=== PATIENT | female | born 1975 | race Caucasian/White ===

== ENCOUNTER 2018-05-02 23:18 | Emergency (ER) | payer MEDICAID ==
[~2018-05-02] VITALS: Ht 157.5 cm; Wt 111.3 kg
[2018-05-02 23:31] VITALS: BP 159/84; PULSE 86; RESP 20; Ht 157.5 cm; Wt 111.3 kg
[2018-05-03] MEDS ORDERED: D-ME473S2 PO (02:08)
[2018-05-03] MEDS ORDERED: AZIT250T PO (02:08)
[2018-05-03] MEDS ORDERED: ALBU8.5H8 INH (02:08)
--- NOTE | 2018-05-03 02:32 | ERD ---
ER Documentation Chief Complaint Chief Complaint BIB SELF W/ C/O CHOW, COUGH AND PAIN TO UPPER CHEST W/ COUGH X3 WEEKS HPI This is a 42-year-old female presents ED with complaints of cough times 3 weeks. Patient admits to sputum production, bilateral ear pain, mild headache and chest discomfort with prolonged coughing spells. Denies shortness breath, wheezing, runny nose, sore throat, neck pain, fever, chills. Patient states that son is recently been sick. No known drug allergies. ROS All systems reviewed and are negative except as per history of present illness. Medications Home Meds Active Scripts Albuterol Sulfate* (Proair HFA*) 8.5 Gm Hfa.aer.ad, 2 PUFF INH Q4, #1 INHALER Prov:JENNIFER LESTER PA-C 05/03/18 Azithromycin* (Zithromax*) 250 Mg Tablet, 250 MG PO .ZPACK DIRECTED, #6 TAB TAKE 500 MG (2 TABS) THE FIRST DAY THEN 250 MG (1 TAB) DAYS 2-5 Prov:JENNIFER LESTER PA-C 05/03/18 Dextromethorphan Hb-Promethazine Hcl* (Promethazine DM* Syrup) 473 Ml Syrup, 5 ML PO Q6 PRN for COUGH for 5 Days, ML Prov:JENNIFER LESTER PA-C 05/03/18 Allergies Allergies: Coded Allergies: No Known Allergy (Verified , 07/21/06) PMhx/Soc Medical and Surgical Hx: pt denies Medical Hx, pt denies Surgical Hx Hx Alcohol Use: No Hx Substance Use: No Hx Tobacco Use: No Smoking Status: Never smoker FmHx Family History: No diabetes Physical Exam Vitals Vital Signs Date Temp Pulse Resp B/P (MAP) Pulse Ox O2 O2 Flow FiO2 Time Delivery Rate 05/02/18 98.6 86 20 159/84 98 23:31 (109) Physical Exam Physical Exam Vitals signs: Reviewed by me. General: Well developed, well nourished, in no acute distress. Patient is awake and alert. Head: Normocephalic, atraumatic. Eyes: Normal conjunctiva, Pupils PERRLA, EOM intact grossly ENT: Pharynx is clear, Moist mucous membranes, external ears, nose and mouth normal Neck: Supple, no masses, lymphadenopathy or JVD Respiratory: Clear to auscultation bilaterally with no wheezing, rhonchi, rales, no distress Cardiovascular: RRR, no murmurs, rubs, or gallops Neurologic: Alert and oriented, moving all extremities, normal speech, no focal weakness, no cerebellar signs. Normal mentation Skin: warm and dry, No rash Psych: Normal mood Procedures/MDM ER COURSE: The patient was stable throughout ED course. I kept the patient and/or family informed of laboratory and diagnostic imaging results throughout the emergency room course. The patient was promptly evaluated and a treatment plan was devised based on H&P and other data. This plan was discussed with the patient who agreed and had no further questions or concerns prior to discharge. MEDICAL DECISION MAKIN-year-old female presents ED with complaints of cough times 3 weeks. Symptoms are most likely consistent with acute bronchitis. Low suspicion for pneumonia, as lung sounds are clear at this time. Oxygen saturation is normal and patient does not have any respiratory distress. Advanced imaging is not indicated at this time. Low suspicion for other cardiopulmonary emergency such as pulmonary embolism, pneumothorax, tension pneumothorax, pleural effusion, pneumothorax, CHF, aortic aneurysm or other cardiopulmonary emergencies. No evidence of sepsis. Patient's vitals are stable he can be managed with close outpatient follow-up. Advised patient to follow-up with primary care in the next 48 hours. Return to ED with any worsening symptoms DISPOSITION PLAN: We discussed follow up with the patient's primary care doctor within 24 to 48 hours. Patient counseled regarding my diagnostic impression and care plan. Prior to discharge all questions answered. Pt agrees with treatment plan and understands strict return precautions. Precautionary instructions provided including instructions to return to the ER if not improving or for any worsening or changing symptoms or concerns. ExitCare instructions provided. Prior to discharge, patients vital signs have been reviewed SPECIALIST FOLLOW UP RECOMMENDED: None Patient has been advised to follow up with primary care in 1-2 days. Disclaimer: Inadvertent spelling and grammatical errors are likely due to EHR/dictation software use and do not reflect on the overall quality of patient care. Also, please note that the electronic time recorded on this note does not necessarily reflect the actual time of the patient encounter. Blood Pressure Assessment: Patient's blood pressure was elevated (>120/80) but appears stable without evidence of hypertension emergency or urgency. The patient was counseled about the risks of hypertension and urged to pursue outp atient monitoring and therapy within a week with their primary care physician. Departure Diagnosis: Primary Impression: Acute bronchitis Bronchitis organism: unspecified organism Qualified Codes: J20.9 - Acute bronchitis, unspecified Condition: Stable Patient Instructions: Bronchitis, Antiobiotic Treatment (Adult) [facility]errals[facility] Usted se chow hecho un examen mdico de control que le indica que no est en ama condicin que requiera tratamiento urgente en el Departamento de Emergencia. Un estudio ms profundo y el tratamiento de hernandez condicin pueden esperar sin ningn riesgo hasta que usted sea atendida/o en el consultorio de hernandez mdico o ama clnica. Es responsabilidad suya arreglar ama moe para el seguimiento del marquis. MANEJO DE CONDICIONES NO URGENTES EN EL FUTURO 1) Si usted tiene un mdico de atencin primaria: Usted debera llamar a hernandez mdico de atencin primaria antes de venir al departamento de emergencia. Despus de las horas de consultorio, hernandez doctor o hernandez asociado/a est disponible por telfono. El mdico o enfermero de rhianna en el servicio telefnico puede asesorarle por soledad medio para atender el problema, o marquis contrario se puede programar ama moe. 2) Si usted no tiene un mdico de atencin primaria: Llame al mdico o clnica de referencia que aparece abajo phil las horas de consultorio para hacer ama moe para que le vean. CLINICAS: [facility] [phone] [facility] [phone] [facility] [phone] [facility] [phone] [facility] [phone] [facility] [phone] [address] Additional Instructions: Paciente aconseja volver a Departamento de urgencias inmediatamente para sntomas nuevos o que empeoran . Paciente aconseja posteriores con el PCP en 1-2 sales . Paciente verbaliza la comprehensin y est de acuerdo con el tratamiento y el curso de accin. Si el paciente no tiene ninguna de atencin primaria pueden seguir con [facility] [address] [place] [address] o [facility] + [address] [address] JENNIFER LESTER PA-C May 03, 2018 02:32
== END 2018-05-03 02:40 | disposition home or self-care (01) ==
LOC: FTE 23:18
DX: J20.9 Acute bronchitis, unspecified (principal)
CPT/HCPCS: 99283

== ENCOUNTER 2018-09-21 11:52 | Emergency (ER) | payer MEDICAID ==
[~2018-09-21] VITALS: Ht 165.1 cm; Wt 110.0 kg
[~2018-09-21 11:52] MED LIST: ALBU8.5H8 INH; AZIT250T PO; D-ME473S2 PO
[2018-09-21 11:53] VITALS: Ht 165.1 cm; Wt 110.0 kg
[2018-09-21] MEDS ORDERED: ONDA8TAB14 PO (14:38)
[2018-09-21] MEDS ORDERED: IBUP-1542 PO (14:38)
--- NOTE | 2018-09-21 14:48 | ERD ---
ER Documentation Chief Complaint Chief Complaint Pt with c/o dizzziness/Nausea, and epigastric pain X 3 days HPI This is a pleasant 43-year-old female presents for evaluation of dizziness and nausea. Is associated with epigastric pain for the last 3 days. She denies chest pain or shortness of breath, she has not had any prior abdominal surgeries, she denies vaginal discharge. She has not had a fever, symptoms are intermittent. She has not had any syncope or near syncope. ROS All systems reviewed and are negative except as per history of present illness. Medications Home Meds Active Scripts Ondansetron (Ondansetron Odt) 8 Mg Tab.rapdis, 8 MG PO Q6H PRN for NAUSEA AND/OR VOMITING, #10 TAB Prov:ANGEL MEDINA MD 09/21/18 Ibuprofen* (Motrin*) 600 Mg Tab, 600 MG PO Q6, #30 TAB Prov:ANGEL MEDINA MD 09/21/18 Discontinued Scripts Albuterol Sulfate* (Proair HFA*) 8.5 Gm Hfa.aer.ad, 2 PUFF INH Q4, #1 INHALER Prov:JENNIFER LESTER PA-C 05/03/18 Azithromycin* (Zithromax*) 250 Mg Tablet, 250 MG PO .ZPACK DIRECTED, #6 TAB TAKE 500 MG (2 TABS) THE FIRST DAY THEN 250 MG (1 TAB) DAYS 2-5 Prov:JENNIFER LESTER PA-C 05/03/18 Dextromethorphan Hb-Promethazine Hcl* (Promethazine DM* Syrup) 473 Ml Syrup, 5 ML PO Q6 PRN for COUGH for 5 Days, ML Prov:JENNIFER LESTER PA-C 05/03/18 Allergies Allergies: Coded Allergies: No Known Allergy (Verified , 09/21/18) PMhx/Soc Medical and Surgical Hx: pt denies Medical Hx History of Surgery: Yes (c/s x2) Hx Alcohol Use: No Hx Substance Use: No Hx Tobacco Use: No Smoking Status: Never smoker Physical Exam Vitals Vital Signs Date Temp Pulse Resp B/P (MAP) Pulse Ox O2 O2 Flow FiO2 Time Delivery Rate 09/21/18 60 18 115/63 98 Room Air 14:09 (80) 09/21/18 97.7 63 16 114/63 96 Room Air 12:37 (80) 09/21/18 97.9 70 14 136/67 97 11:53 (90) Physical Exam Const: No acute distress Head: Atraumatic Eyes: Normal Conjunctiva ENT: Normal External Ears, Nose and Mouth. Neck: Full range of motion. No meningismus. Resp: Clear to auscultation bilaterally Cardio: Regular rate and rhythm, no murmurs Abd: Soft, mild right upper quadrant tenderness, no rebound or guarding, obes e, non distended. Normal bowel sounds Skin: No petechiae or rashes Back: No midline or flank tenderness Ext: No cyanosis, or edema Neur: Awake and alert Psych: Normal Mood and Affect Result Diagram: 09/21/18 1228 09/21/18 1228 Results 24 hrs Laboratory Tests Test 09/21/18 12:28 09/21/18 12:45 09/21/18 12:58 White Blood Count 9.4 10^3/ul Red Blood Count 4.24 10^6/ul Hemoglobin 12.6 g/dl Hematocrit 38.2 % Mean Corpuscular Volume 90.1 fl Mean Corpuscular Hemoglobin 29.7 pg Mean Corpuscular 33.0 g/dl Hemoglobin Concent Red Cell Distribution Width 12.2 % Platelet Count 193 10^3/UL Mean Platelet Volume 9.6 fl Immature Granulocytes % 0.400 % Neutrophils % 55.1 % Lymphocytes % 36.7 % Monocytes % 5.6 % Eosinophils % 1.7 % Basophils % 0.5 % Nucleated Red Blood Cells % 0.0 /100WBC Immature Granulocytes # 0.040 10^3/ul Neutrophils # 5.2 10^3/ul Lymphocytes # 3.5 10^3/ul Monocytes # 0.5 10^3/ul Eosinophils # 0.2 10^3/ul Basophils # 0.1 10^3/ul Nucleated Red Blood Cells # 0.0 10^3/ul Sodium Level 140 mmol/L Potassium Level 4.1 mmol/L Chloride Level 103 mmol/L Carbon Dioxide Level 26 mmol/L Anion Gap 11 Blood Urea Nitrogen 10 mg/dl Creatinine 0.39 mg/dl Est Glomerular Filtrat > 60 mL/min Rate mL/min Glucose Level 204 mg/dl Calcium Level 9.4 mg/dl Total Bilirubin 0.5 mg/dl Direct Bilirubin 0.00 mg/dl Indirect Bilirubin 0.5 mg/dl Aspartate Amino 66 IU/L Transf (AST/SGOT) Alanine 104 IU/L Aminotransferase (ALT/SGPT) Alkaline Phosphatase 58 IU/L Troponin I < 0.012 ng/ml Total Protein 7.9 g/dl Albumin 4.2 g/dl Globulin 3.70 g/dl Albumin/Globulin Ratio 1.13 Lipase 78 U/L Urine Color YELLOW Urine Clarity TURBID Urine pH 5.0 Urine Specific [place] 1.026 Urine Ketones NEGATIVE mg/dL Urine Nitrite NEGATIVE mg/dL Urine Bilirubin NEGATIVE mg/dL Urine Urobilinogen NEGATIVE mg/dL Urine Leukocyte Esterase NEGATIVE Yolis/ul Urine Microscopic RBC 0 /HPF Urine Microscopic WBC 0 /HPF Urine Squamous Epithelial Cells MODERATE /HPF Urine Mucus FEW /HPF Urine Hemoglobin NEGATIVE mg/dL Urine Glucose NEGATIVE mg/dL Urine Total Protein 2+ mg/dl POC Beta HCG, Qualitative NEGATIVE Procedures/MDM Is a very pleasant 43-year-old female presents for evaluation of intermittent epigastric pain. Her ultrasound revealed cholelithiasis, I suspect is most likely etiology of her symptoms. She is afebrile and nontoxic-appearing with no peritoneal signs. Low suspicion for cardiac etiology, other given her age and female gender I did consider anginal equivalent, her cardiac work-up was negative though. At this time I feel the patient is stable for outpatient management, at discharge she was in no distress. Strict return cautions were given to return for any fever worsening abdominal pain, or any other concerns. EKG: Rate/Rhythm: Normal Sinus Rhythm QRS, ST, T-waves: No changes consistent w/ acute ischemia Impression: No evidence of ischemia or arrhythmia Departure Diagnosis: Primary Impression: Abdominal pain Abdominal location: unspecified location Qualified Codes: R10.9 - Unspecified abdominal pain Condition: Stable Patient Instructions: Abdominal Pain, Gallstones Additional Instructions: Call your primary care doctor TOMORROW for an appointment during the next 2-3 days.See the doctor sooner or return here if your condition worsens before your appointment time. ANGEL MEDINA MD Sep 21, 2018 14:48
[2018-09-21 14:53] VITALS: BP 132/85; PULSE 66; RESP 16
== END 2018-09-21 15:10 | disposition home or self-care (01) ==
LOC: E/R 11:52
DX: R10.13 Epigastric pain (principal); R40.2142 Coma scale, eyes open, spontaneous, at arrival to emergency department; R40.2362 Coma scale, best motor response, obeys commands, at arrival to emergency department; R40.2252 Coma scale, best verbal response, oriented, at arrival to emergency department; R11.0 Nausea
CPT/HCPCS: 36415; 71045; 76705; 80053; 81001; 81025; 83690; 84484; 85025; 93005; Z7502